=== PATIENT | male | born 2005 | race African-American/Black ===

== ENCOUNTER 2025-01-13 18:03 | Emergency (ER) | payer SELFPAY ==
--- NOTE | 2025-01-13 18:14 | ED.ABDPAIN ---
HPI - Abdominal Pain General Chief Complaint: Abdominal Pain Stated Complaint: VOMITING/LOWER R SIDE PAIN Patient presents to [facility] with complaints of waking up this morning not feeling well around 9:00 a.m. started nausea and vomiting then around noon started having right lower abdominal pain. Patient noted attempting Tums and attempting to eat pretzels as well as sipping on water and Gatorade still unable to keep anything down. Related Data Home Medications ?Medication ?Instructions ?Recorded ?Confirmed ?Last Taken ?Type No Home Medications 01/13/25 01/13/25 Unknown History Allergies Allergy/AdvReac Type Severity Reaction Status Date / Time No Known Allergies Allergy Verified 01/13/25 18:23 Review of Systems Constitutional: Constitutional: Reports as per HPI, Denies chills, Denies fatigue, Reports fever(s) ( Noted in [facility]) and Denies weakness ENT: Reports system reviewed and no additional complaints, except as documented Cardiovascular: Cardiovascular: Reports no additional cardiovascular complaints Respiratory: Respiratory: Reports no additional respiratory complaints Gastrointestinal: Gastrointestinal: Reports as per HPI, Reports abdominal pain, Denies bloating, Denies constipation, Denies heartburn, Denies diarrhea, Reports nausea and Reports vomiting Genitourinary: Genitourinary: Reports no additional male genitourinary complaints Musculoskeletal: Musculoskeletal: Reports no additional musculoskeletal complaints Integumentary/Breasts: Skin/Breast: Reports system reviewed and no additional complaints, except as docu Neurologic: Reports system reviewed and no additional complaints, except as documented Psychiatric: Psychiatric: Reports no additional psychiatric complaints Endocrine: Endocrine: Reports no additional endocrine complaints Hematologic/Lymphatic: Hematologic/Lymphatic: Reports no additional hematologic/lymphatic complaints Allergic/Immunologic: Allergic/Immunologic: Reports no additional allergic/immunologic complaints Exam Const: General: no acute distress, alert and ill appearing Nutritional Appearance: well nourished Orientation/consciousness: patient oriented x3 Limitations: no limitations Other: low-grade fever noted at [facility] Resp: Effort & Inspection: normal respiratory effort Auscultation: clear to auscultation bilaterally Cardio: Rate: regular rate Rhythm: regular rhythm GI: GI Palp: Yes Soft to palpation, Yes Tenderness to palpation present (GI) (RLQ), Yes Guarding due to palpation present (GI) (RLQ), No Rigid due to palpation, No Hernia present, No Palpable mass present and No Rebound tenderness present Auscultation: normal bowel sounds Back/Spine/Pelvis: Back: no CVA tenderness Skin: General skin exam: normal color Rashes: no rashes Wounds: no wounds Neuro: General: patient oriented x3 Speech: normal speech Gait exam (Neuro): Normal gait present Psych: Mental Status: mental status grossly normal Affect: normal affect Attitude: cooperative Course Course Level of Care: Express Care Visit Vital Signs Vital signs: Vital Signs Temperature 100.2 F H 01/13/25 18:21 Pulse Rate 86 01/13/25 18:21 Respiratory Rate 16 01/13/25 18:21 Blood Pressure 121/67 01/13/25 18:21 Pulse Oximetry 100 01/13/25 18:21 Temperature 100.2 F H 01/13/25 18:21 Pulse Rate 86 01/13/25 18:21 Respiratory Rate 16 01/13/25 18:21 Blood Pressure 121/67 01/13/25 18:21 Pulse Oximetry 100 01/13/25 18:21 MDM - Abdominal Pain MDM Narrative Medical decision making narrative: Given patient's complaint and symptoms patient should be evaluated in a emergency room to rule out appy. Patient notified of and concerns and agreeable to be transferred to the emergency room. Patient was driven here by friend will go by private vehicle report called to Martha ZULETA at [facility]. Differential Diagnosis Differential diagnosis: Likely abdominal pain, acute appendicitis, calculus of kidney, diverticulitis and endometriosis Medical Records Attestation: I reviewed the patient's medical records. Discharge Plan Discharge Clinical Impression: Abdominal pain Patient Disposition: Acute Care Hospital Condition: Unstable Patient Language: Hungarian Prescriptions: No Action No Home Medications Follow-up/Referrals: PHYSICIAN,NETWORK CONTRACT MANAGER [Primary Care Provider] - Time of Disposition: 18:29
[2025-01-13 18:21] VITALS: BP 121/67; PULSE 86; RESP 16; TEMP 37.9; O2SAT 100
== END 2025-01-13 18:30 | disposition short-term general hospital (02) ==
PROVIDERS: Emergency Provider Nurse Practitioner Family
DX: R10.31 Right lower quadrant pain (principal)
CPT/HCPCS: 99212; G0463

== ENCOUNTER 2025-01-13 18:49 | Observation (INO) | payer MEDICAID, SELFPAY ==
--- NOTE | ~2025-01-13 | CT_ITS ---
EXAMINATION: CT abdomen pelvis w con DATE: 01/13/2025 23:15 INDICATION: RLQ pain, likely appy TECHNIQUE: Computed tomography (CT) of the abdomen and pelvis was performed with 100 mL Omnipaque-350 intravenous contrast. Automated exposure control and iterative reconstruction technique were employe d. The dose-length product was 226.19 mGy-cm. COMPARISON: None. FINDINGS: Lower thorax: Unremarkable Liver: Normal. Biliary/Gallbladder: Gallbladder is normal. No bile duct dilation. Pancreas: No mass or duct dilation. Spleen: Normal. Adrenals:No mass. Kidneys: No suspicious mass, obstructing stone, or hydronephrosis. GI tract: Mild distal esophageal and gastric wall edema. No small or large bowel dilation. The append ix is dilated to 9 mm, with wall hyperemia and surrounding inflammatory change. No evidence of wall b reakdown or periappendiceal abscess Mesentery/Peritoneum: No ascites, mass, or free air. Retroperitoneum: No mass. Pelvis: Pelvic organs are within normal limits. Trace free pelvic fluid. Soft Tissues: Soft tissues and body wall unremarkable. Bones: No acute osseous finding. IMPRESSION: Mild esophagitis/gastritis. Acute uncomplicated appendicitis. Reviewed, dictated and finalized at location K.
--- OUTSIDE RECORDS SUMMARY | 2025-01-13 18:50 | XMS_ITS | Clinical Summary ---
Author Organization [facility] Address 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 Gender Identity Not on file Sexual Orientation Not on file Last Filed Vital Signs Vital Sign Reading Time Taken Comments Blood Pressure - - Pulse - - Temperature - - Respiratory Rate - - Oxygen Saturation - - Inhaled Oxygen Concentration - - Weight 32.7 kg (72 lb) 11/30/2014 10:34 AM CDT Height 146 cm (4' 9.48) 11/30/2014 10:34 AM CDT Body Mass Index 15.32 11/30/2014 10:34 AM CDT Plan of Treatment Health Maintenance Due Date Last Done Comments HEPATITIS C SCREENING 2004 TDAP/TD VACCINE (1 - Tdap) 2015 DEPRESSION SCREENING 2016 HIV SCREENING 2019 HPV VACCINE (1 - Male 3-dose series) 2019 COVID-19 VACCINE (2023-2 5 season) 2024 INFLUENZA VACCINE (#1) 2025 ZOSTER SERIES VACCINE (1 of 2) 2054 Adult RSV VACCINE (1 - 1-dos e 75+ series) 2079 Pneumococcal Vaccine: Childh ood and At-Risk Adult <65 yo Series Aged Out No longe r eligible based on patient's age to complete this topic Care Teams Audiology Assistant Relationship Specialty Start Date End Date [place] Julius Tucker [address] [place] [address] PCP - General Pediatrics 04/15/11 Carol Martinez [id number], [address] [place], [place] [id number] Referring Provider Pediatrics 03/31/15
--- OUTSIDE RECORDS SUMMARY | 2025-01-13 18:50 | XMS_ITS | Clinical Summary ---
Author Organization [facility] Address [address] [place] [address] Care Team Providers Care Budget Report Clerk Name Role Phone Unavailable Primary Care Provider Unavailabl e Source Comments [facility] is the largest [facility] health system based in [place]. We offer more than 150 locations around the [facility], in communities large and small, so health care access is convenient. With 19 [facility] hospitals, over 25 long-term care and chcf facilities, dozens of physician offices and health centers, home care, hospice, behavioral health services and more. Currently six of our Hospitals are live on the [employer] system, they are: [facility] Social History Tobacco Use Types Packs/Day Years Used Date Smoking Tobacco: Never Assessed Sex and Gender Information Value Date Recorded Sex Assigned at Not on file Gender Identity Not on file Sexual Orientation Not on file Plan of Treatment Not on file
--- OUTSIDE RECORDS SUMMARY | 2025-01-13 18:50 | XMS_ITS | Clinical Summary ---
Author Organization [employer] [facility] [place] [address] Phone Care Team Providers Care Behavioral Scientist Name Role Phone No, Pcp MD Primary Care Provider Unavailabl e Allergies No known active allergies Medications cephALEXin (KEFLEX) 250 mg/5 mL suspension 11/28/2014 Active hydrocortisone 2.5 % ointment 11/28/2014 Acti ve hydrOXYzine (ATARAX) 10 mg/5 mL syrup 11/28/2014 Active diphenhydrAMINE (BENADRYL ALLERGY) 12.5 mg/5 mL liquid Take 10 mL by mouth 4 (four) times daily as needed 1 Bottle 0 12/02/2014 Active Social History Tobacco Use Types Packs/Day Years Used Date Smoking Tobacco: Never Assessed Alcohol Use Standard Drinks/Week Comments No 0 (1 standard drink = 0.6 oz pur e alcohol) Sex and Gender Information Value Date Recorded Sex Assigned at Not on file Legal Sex Male 9:54 PM EST Gender Identity Not on file Sexual Orientation Not on file Last Filed Vital Signs Vital Sign Reading Time Taken Comments Blood Pressure 108/69 12/02/2014 5:28 PM CDT Pulse 100 12/02/2014 6:55 PM CDT Temperature 36.7 C (98.1 F) 12/02/2014 5:28 PM CDT Respiratory Rate 20 12/02/2014 6:55 PM CDT Oxygen Saturation 100% 12/02/2014 6:55 PM CDT Inhaled Oxygen Concentration - - Weight 32.2 kg (71 lb) 12/02/2014 5:28 PM CDT Height - - Body Mass Index - - Plan of Treatment Not on file Care Teams Behavioral Scientist Relationship Specialty Start Date End Date No, Pcp, MD PCP - General Unknown Physician Specialty 12/02/14
[2025-01-13 18:52] VITALS: BP 130/79; PULSE 86; RESP 16; TEMP 36.9; O2SAT 100
[2025-01-13 22:03] VITALS: BP 114/71; PULSE 89; RESP 14; TEMP 37; O2SAT 99
[2025-01-13 22:18] LABS: Hematocrit 40.8 % (42.0-52.0); Hemoglobin 14.4 g/dL (14.0-18.0); Immature Granulocyte Percent A 0.6 % (0-0.5); Lymphocytes Absolute Auto 1.47 K/mm3 (0.9-3.2); Mean Corpuscular HGB Conc 35.3 g/dl (32-36); Mean Corpuscular Hemoglobin 28.5 pg (26-34); Mean Corpuscular Volume 80.8 fl (80-100); Nucleated Red Blood Cells Absolute Auto 0.000 K/mm3 (0.0-0.012); Nucleated Red Blood Cells Perc 0.0 % (0.0-0.2); Platelet Count Result 263 k/mm3 (150-375); Red Blood Count 5.05 M/mm3 (4.6-6.20); White Blood Count 17.9 K/mm3 (4.5-10.0)
[2025-01-13 22:28] LABS: Alanine Aminotransferase 20 U/L (6-50); Albumin Level 4.8 g/dL (3.5-5.1); Alkaline Phosphatase 61 U/L (38-126); Anion Gap 9 mmol/L (4-12); Aspartate Amino Transferase 32 U/L (17-59); Bilirubin,Total 1.3 mg/dL (0.2-1.3); Blood Urea Nitrogen 10 mg/dL (9-20); Calcium 9.6 mg/dL (8.4-10.2); Carbon Dioxide 25 mmol/L (22-30); Chloride 101 mmol/L (98-107); Estimated CRCL calculation 101 ml/min; Estimated Glomerular Filt Rate > 60; Glucose 104 mg/dL (65-110); Lipase 23 U/L (23-300); Potassium 4.3 mmol/L (3.4-5.0); Sodium 135 mmol/L (137-145); Total Protein 8.2 g/dL (6.3-8.2)
--- OUTSIDE RECORDS SUMMARY | 2025-01-13 22:49 | XMS_ITS | Clinical Summary ---
Author Organization [employer] [facility] [place] [address] Phone Care Team Providers Care Vice President & General Manager [employer] Name Role Phone No, Pcp MD Primary [...] of Treatment Not on file Care Teams Vice President & General Manager [employer] Relationship Specialty Start Date End Date No, Pcp, MD PCP - General Unknown Physician Specialty 12/02/14
--- OUTSIDE RECORDS SUMMARY | 2025-01-13 22:50 | XMS_ITS | Clinical Summary ---
Author Organization [facility] Address 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
--- OUTSIDE RECORDS SUMMARY | 2025-01-13 22:50 | XMS_ITS | Clinical Summary ---
Author Organization [facility] [place] Address [address] [place] [address] Care Team Providers Care Chlorinator Operator Name Role Phone Unavailable Primary Care Provider Unavailabl e Source Comments [facility] is the largest [facility] health system based in [place]. We offer more than 150 locations around the [facility], in communities large and small, so health care access is convenient. With 19 [facility] and [facility] hospitals, over 25 long-term care and correction facilities, dozens of physician offices and health centers, home care, hospice, behavioral health services and more. Currently six of our Hospitals are live on the [employer] system, they are: [facility] Social History Tobacco Use Types Packs/Day Years Used Date Smoking Tobacco: Never Assessed Sex and Gender Information Value Date Recorded Sex Assigned at Not on file Gender Identity Not on file Sexual Orientation Not on file Plan of Treatment Not on file
--- NOTE | 2025-01-13 23:09 | ED_ITS ---
HPI - Abdominal Pain General Chief Complaint: Abdominal Pain Stated Complaint: RLQ pain x 1 day Time Seen by Provider: 01/13/25 22:26 History of Present Illness HPI narrative: 19-year-old otherwise healthy male presenting to the emergency department for evaluation of right lower quadrant pain associated with nausea and multiple episodes of vomiting earlier today. States his pain started suddenly throughout the day and gradually worsened. Went to urgent care and they were concerned about appendicitis and he was referred to the ER for evaluation. No history of abdominal surgical history, no previous infections or hospital visits. No chronic medication use. Was otherwise in his normal state of health. Endorses some nauseousness leftover but has not eaten since yesterday night. Related Data Home Medications ?Medication ?Instructions ?Recorded ?Confirmed ?Last Taken ?Type No Home Medications 01/13/25 01/13/25 Unknown History Allergies Allergy/AdvReac Type Severity Reaction Status Date / Time No Known Allergies Allergy Verified 01/13/25 18:23 Review of Systems 2 Review of Systems: As reviewed above in HPI Exam 2 Narrative: GENERAL: [Well-appearing, well-nourished, and in no acute distress.] HEAD: [Normocephalic, atraumatic.] EYES: [PERRLA and EOMI.] ENT: Nares clear, no rhinorrhea or epistaxis. Mucous membranes moist. NECK: Supple. CHEST: [Clear to auscultation. No respiratory distress.] HEART: [Regular rate and rhythm]. No murmur heard. [Normal peripheral pulses.] ABDOMEN: Soft and nondistended, tender to palpation the right lower quadrant, positive psoas sign, no rigidity or guarding EXTREMITIES: Normal range of motion. [No edema.] SKIN: Warm, dry, no rash. NEURO: [No focal deficits]. Alert and oriented [x3.] PSYCH: [Normal mood and affect.] Course Vital Signs Vital signs: Vital Signs Temperature 36.9 C 01/13/25 18:52 Pulse Rate 86 01/13/25 18:52 Respiratory Rate 16 01/13/25 18:52 Blood Pressure 130/79 01/13/25 18:52 Pulse Oximetry 100 01/13/25 18:52 Oxygen Delivery Room Air 01/13/25 18:52 Temperature 37.0 C 01/13/25 22:03 Pulse Rate 89 01/13/25 22:03 Respiratory Rate 14 01/13/25 22:03 Blood Pressure 114/71 01/13/25 22:03 Pulse Oximetry 99 01/13/25 22:03 Oxygen Delivery Room Air 01/13/25 18:52 MDM - Abdominal Pain MDM Narrative Medical decision making narrative: 19-year-old otherwise healthy male presenting to the emergency department for evaluation of right lower quadrant pain associated with nausea and multiple episodes of vomiting earlier today. States his pain started suddenly throughout the day and gradually worsened. Went to urgent care and they were concerned about appendicitis and he was referred to the ER for evaluation. No history of abdominal surgical history, no previous infections or hospital visits. No chronic medication use. Was otherwise in his normal state of health. Endorses some nauseousness leftover but has not eaten since yesterday night. Pain is reproducible in the right lower quadrant with palpation as well as a positive psoas sign. He is afebrile with no tachycardia with normal vital signs which is reassuring. Considerations are for appendicitis, appendicular with, gastritis, colitis, intra-abdominal infection, urinary tract infection, kidney stone. Laboratory studies were obtained and he was offered analgesia medications but he politely declined at this time. Laboratory studies showed leukocytosis of 17.9k raising suspicion for active infection. CT scan with IV contrast obtained for further delineation. CT scan independently reviewed and interpreted by radiology with acute appendicitis that appears uncomplicated. Consistent with patient's exam and laboratory findings. Discussed the case with general surgeon Dr. Hooper who will be admitting the patient. Patient was started on antibiotics including Rocephin and Flagyl, fluid resuscitation given, p.r.n. pain medications ordered NPO at midnight. Admission orders placed and I discussed this with the patient and the family members at bedside were comfortable with the plan. Medical Records Attestation: I reviewed the patient's medical records. Lab Data Attestation: I reviewed the patient's lab results. 01/13/25 22:08 01/13/25 22:08 Labs: Lab Results 01/13/25 01/13/25 Range/Units 22:08 23:35 WBC 17.9 H (4.5-10.0) K/mm3 RBC 5.05 (4.6-6.20) M/mm3 Hgb 14.4 (14.0-18.0) g/dL Hct 40.8 L (42.0-52.0) % MCV 80.8 (80-100) fl MCH 28.5 (26-34) pg MCHC 35.3 (32-36) g/dl RDW 13.4 (11.5-14.5) % Plt Count 263 (150-375) k/mm3 MPV 10.8 H (7.4-10.4) fl Immature Gran % (Auto) 0.6 H (0-0.5) % Neut % (Auto) 83.6 H (45.5-73.1) % Lymph % (Auto) 8.2 L (18.3-44.2) % [place] % (Auto) 7.5 (2.6-8.5) % Eos % (Auto) 0.0 (0-4.4) % Baso % (Auto) 0.1 L (0.2-1.2) % Lymph # (Auto) 1.47 (0.9-3.2) K/mm3 Davison # (Auto) 1.3 H (0.1-0.6) K/mm3 Eos # (Auto) 0.0 (0-0.3) K/mm3 Baso # (Auto) 0.0 (0.0-0.1) K/mm3 Abs Immat Gran (auto) 0.10 H (0.00-0.031) K/mm3 Absolute Neuts (auto) 15.0 H (1.3-6.7) K/mm3 Absolute Nucleated RBC 0.000 (0.0-0.012) K/mm3 Nucleated RBC % 0.0 (0.0-0.2) % Sodium 135 L (137-145) mmol/L Potassium 4.3 (3.4-5.0) mmol/L Chloride 101 (98-107) mmol/L Carbon Dioxide 25 (22-30) mmol/L Anion Gap 9 (4-12) mmol/L BUN 10 (9-20) mg/dL Creatinine 0.92 (0.7-1.3) mg/dL Estim Creat Clear Calc 101 ml/min Estimated GFR > 60 (59 - ) Glucose 104 (65-110) mg/dL Calcium 9.6 (8.4-10.2) mg/dL Total Bilirubin 1.3 (0.2-1.3) mg/dL AST 32 (17-59) U/L ALT 20 (6-50) U/L Alkaline Phosphatase 61 (38-126) U/L Total Protein 8.2 (6.3-8.2) g/dL Albumin 4.8 (3.5-5.1) g/dL Lipase 23 (23-300) U/L Urine Color Yellow (Yellow) Urine Appearance Clear (Clear) Urine pH 7.5 (5.0-9.0) Ur Specific [place] 1.043 H (1.001-1.035) Urine Protein Trace (Negative) mg/dL Urine Glucose (UA) Negative (Negative) mg/dL Urine Ketones 3+ H (Negative) mg/dL Ur Blood (Man) Negative (Negative) Urine Nitrate Negative (Negative) Urine Bilirubin Negative (Negative) Urine Urobilinogen 1.0 (<2.0) mg/dL Leukocyte Esterase Rfl Trace H (Negative) RACHELL/UL Urine RBC 0-2 (0-2) /hpf Urine WBC 6-10 H (0-3) /hpf Ur Squamous Epith Cells None seen (Few) /hpf Urine Bacteria None seen /hpf Urine Casts 0-2 Imaging Data Attestation: I personally reviewed and interpreted this imaging study as follows: My impression: Impressions Abdomen/Pelvis CT 01/13/25 23:16 IMPRESSION: Mild esophagitis/gastritis. Acute uncomplicated appendicitis. Radiologist's impression: ITS Impressions Abdomen/Pelvis CT 01/13/25 23:16 IMPRESSION: Mild esophagitis/gastritis. Acute uncomplicated appendicitis. Discharge Plan Discharge Clinical Impression: Acute appendicitis Patient Disposition: Still a Patient Condition: Stable Instructions: Antibiotic Form Patient Language: Frisian Prescriptions: No Action No Home Medications Follow-up/Referrals: PHYSICIAN NOT ON STAFF,NONSTAFF [Primary Care Provider] - Time of Disposition: 00:10
[2025-01-13 23:47] LABS: Add Urine Microscopic? YES; Appearance Urine Clear (Clear); Glucose Urine UA Negative (Negative); Leukocyte Esterase Ur Trace LEU/UL (Negative); Nitrate Urine Negative (Negative); Non Pathogenic Casts 0-2; Specific Grav Ur 1.043 (1.001-1.035)
[2025-01-14] VITALS (14 sets, daily range): BP systolic 117–130; BP diastolic 53–75; PULSE 63–94; RESP 13–18; TEMP 36.4–37.2; O2SAT 98–100
[2025-01-14] MEDS: cefTRIAXone 1 GM in SODIUM CHLORIDE 0.9% IV 50 ML 100 ML IVPB (00:36)
[2025-01-14] MEDS: SODIUM CHLORIDE 0.9% IV 1,000 ML 100 ML IV CONT (00:36)
--- NOTE | 2025-01-14 01:09 | ADMGEN ---
This patient, Anival Mcdonald, was admitted to [facility] Surg Room 327-01. Patient/family oriented to hospital policies and general routines including ID bracelet, bed and alarms, visiting hours, pain management, procedures, bathroom and other care routines, personal items, smoking policy, room service/diet, and visiting hours. Information on how to activate the Rapid Response Team has been discussed. Patient/Family are encouraged to report perceived risks to care and to ask questions if they do not understand what they are told or what they should do.
[2025-01-14] MEDS: metroNIDAZOLE 500 MG/ISO 100ML 500 MG/100 ML BAG 100 MG IVPB (01:22)
--- NOTE | 2025-01-14 06:39 | PM.SD2 ---
Same Day Admit/Disch: [facility] History of Present Illness Chief complaint: Acute appendicitis Narrative: Anival Mcdonald is a 19 year old malewith c/o RLQ abd pain, N/V that started yesterday. After being seen in urgent care, he came to ER where he was noted to have RLQ tenderness with guarding and positive psoas sign. His WBC was 17.9K and CT scan showed acute appendicitis. He is in the hospital now for further management of appendicitis, likely appendectomy. [facility] Social History Social History Smoking status: Never smoker Alcohol intake: current Drinks per week: 3 Substance use: current Substance use type: marijuana Last use: 01/11/2025 Do You Feel Safe in your Home?: Yes Lack of Transportation: No Lack of Food: Sometimes True Current Housing: I Have Housing Concerned About Future Housing: No Difficulty Paying Gas/Electric Bills: No Difficulty Paying for Meds: No Currently Unemployed: No Education: High School Diploma/GED Difficulty w/ Childcare or Family Care: No Spiritual care concerns: No Same Day Admit/Disch: Med Pre-admit Medications Home Medications ?Medication ?Instructions ?Recorded ?Confirmed ?Type No Home Medications 01/13/25 01/14/25 History oxycodone-acetaminophen 5 mg-325 0.5 - 1 tablet PO Q4H PRN pain #8 01/14/25 Rx mg tablet (Percocet) tabs Review of Systems Review of Systems All systems reviewed & are unremarkable except as noted in HPI and below (HPI) Exam Const: General: comfortable, no acute distress, alert, awake, well nourished and thin Nutritional Appearance: well nourished Orientation/consciousness: No confusion Limitations: no limitations HENMT: Head: normocephalic and atraumatic Mouth: Yes Normal oral and palatal mucosa present Eyes: Conjunctivae: conjunctivae normal Pupils: Equal, round and reactive pupils present EOM: EOMs intact bilaterally Neck: Neck: normal visual inspection, no lymphadenopathy and nontender Resp: Effort & Inspection: normal respiratory effort Auscultation: clear to auscultation bilaterally Cardio: Rate: regular rate Rhythm: regular rhythm Heart sounds: no gallops, no murmurs and no rubs GI: Inspection: normal to inspection, non-distended, scaphoid, no scars and no visible herniation GI Palp: Yes Soft to palpation, Yes Tenderness to palpation present (GI) (with guarding RLQ), Yes Guarding due to palpation present (GI), No Hepatomegaly present, No Splenomegaly present, No Hernia present and No Palpable mass present Skin: Lesions: no lesions Rashes: no rashes Neuro: General: no focal motor deficits and CN's II-XI intact bilaterally Cranial nerves: Yes Equal, round and reactive pupils present, Yes Bilaterally intact EOM present, Yes facial symmetry and Yes Midline tongue present Speech: normal speech Motor exam (neuro): 5/5 motor strength present throughout and Motor abnormalities not present Extrem: General: no clubbing, cyanosis or edema and edema Psych: Affect: normal affect Thought process: Normal thought process present Insight: Good insight present (Psych) DS: Data Data Completed and Pending Labs on day of discharge: Labs from last 24 hours 01/13/25 01/13/25 23:35 22:08 WBC 17.9 H RBC 5.05 Hgb 14.4 Hct 40.8 L MCV 80.8 MCH 28.5 MCHC 35.3 RDW 13.4 Plt Count 263 MPV 10.8 H Immature Gran % (Auto) 0.6 H Neut % (Auto) 83.6 H Lymph % (Auto) 8.2 L [place] % (Auto) 7.5 Eos % (Auto) 0.0 Baso % (Auto) 0.1 L Lymph # (Auto) 1.47 [place] # (Auto) 1.3 H Eos # (Auto) 0.0 Baso # (Auto) 0.0 Abs Immat Gran (auto) 0.10 H Absolute Neuts (auto) 15.0 H Absolute Nucleated RBC 0.000 Nucleated RBC % 0.0 Sodium 135 L Potassium 4.3 Chloride 101 Carbon Dioxide 25 Anion Gap 9 BUN 10 Creatinine 0.92 Estim Creat Clear Calc 101 Estimated GFR > 60 Glucose 104 Calcium 9.6 Total Bilirubin 1.3 AST 32 ALT 20 Alkaline Phosphatase 61 Total Protein 8.2 Albumin 4.8 Lipase 23 Urine Color Yellow Urine Appearance Clear Urine pH 7.5 Ur Specific [place] 1.043 H Urine Protein Trace Urine Glucose (UA) Negative Urine Ketones 3+ H Ur Blood (Man) Negative Urine Nitrate Negative Urine Bilirubin Negative Urine Urobilinogen 1.0 Leukocyte Esterase Rfl Trace H Urine RBC 0-2 Urine WBC 6-10 H Ur Squamous Epith Cells None seen Urine Bacteria None seen Urine Casts 0-2 Imaging Attestation: I personally reviewed and interpreted this imaging study as follows: (CT scan abd/pelvis) My impression: I was not able to see the appendix on my independent review Radiologist's impression: FINDINGS: Lower thorax: Unremarkable Liver: Normal. Biliary/Gallbladder: Gallbladder is normal. No bile duct dilation. Pancreas: No mass or duct dilation. Spleen: Normal. Adrenals:No mass. Kidneys: No suspicious mass, obstructing stone, or hydronephrosis. GI tract: Mild distal esophageal and gastric wall edema. No small or large bowel dilation. The appendix is dilated to 9 mm, with wall hyperemia and surrounding inflammatory change. No evidence of wall breakdown or periappendiceal abscess Mesentery/Peritoneum: No ascites, mass, or free air. Retroperitoneum: No mass. Pelvis: Pelvic organs are within normal limits. Trace free pelvic fluid. Soft Tissues: Soft tissues and body wall unremarkable. Bones: No acute osseous finding. IMPRESSION: Mild esophagitis/gastritis. Acute uncomplicated appendicitis. DS: Summary Time Spent with Patient Time attestation: Total time spent providing and/or coordinating discharge services: DS: Admitting Diagnosis Discharge Date 01/14/25 Admitting Diagnosis acute appendicitis--after discussion of surgical and medical treatment for acute appendicitis, patient prefers to undergo appendectomy. I discussed laparoscopic appendectomy in detail, including length of surgery and length of postop recovery. Postop potential complications discussed. All questions answered, he wishes to go ahead. DS: Discharge Diagnosis Discharge Diagnosis (1) Acute appendicitis: Qualifiers: Acute appendicitis type: with localized peritonitis Appendicitis abscess presence: unspecified whether abscess present Appendicitis gangrene presence: unspecified whether gangrene present Appendicitis perforation presence: unspecified whether perforation present Qualified Code(s): K35.30 - Acute appendicitis with localized peritonitis, without perforation or gangrene Code(s): K35.80 - Unspecified acute appendicitis Status: Acute Assessment and Plan: Laparoscopic appendectomy performed by Dr. Hooper 01/14/2025 Discharge Plan Discharge Attending physician on discharge: Mark Hooper Discharging Clinician: Mark Hooper Anticipated Discharge Date/Time: 01/14/25 20:00 Patient Disposition: Home Activity: may shower, no straining and as tolerated Diet: as tolerated Wound Care Instructions: incision open to air Discharge Instructions: Ambulate 3-4 x per day and as tolerated. No lifting over 15-20lbs. May bathe or shower. Stairs are OK. May drive a car in 2 days. No sports activities or heavy exertion for 7-10 days resume usual regular diet call Dr. Hooper's office or go to the emergency room if you experience severe abdominal pain, nausea and vomiting, temperature over 100.5?, shortness of breath, or other significant change in condition. Patient Instructions: Antibiotic Form Patient Language: Citizen Of [place] Stand Alone Forms: General Discharge Information, Work/School Release IP Follow-up/Referrals: Mark Hooper MD [Physician] - 01/24/25 (Call Dr. Rich office to make follow-up appointment on 01/24/2025) Discharge Medications: New oxycodone-acetaminophen [Percocet] 5-325 mg tablet 0.5 - 1 tablet PO Q4H PRN (Reason: pain) Qty: 8 0RF Continued No Home Medications Date of admission: 01/14/25 07:46 Primary Care Provider: PHYSICIAN NOT ON STAFF,NONSTAFF Admitting Provider: Mark Hooper Attending physician on admission: Mark Hooper Condition: Improved
[2025-01-14 07:33] LABS: Hematocrit 38.7 % (42.0-52.0); Hemoglobin 13.9 g/dL (14.0-18.0); Immature Granulocyte Percent A 0.4 % (0-0.5); Lymphocytes Absolute Auto 2.18 K/mm3 (0.9-3.2); Mean Corpuscular HGB Conc 35.9 g/dl (32-36); Mean Corpuscular Hemoglobin 28.8 pg (26-34); Mean Corpuscular Volume 80.3 fl (80-100); Nucleated Red Blood Cells Absolute Auto 0.000 K/mm3 (0.0-0.012); Nucleated Red Blood Cells Perc 0.0 % (0.0-0.2); Platelet Count Result 241 k/mm3 (150-375); Red Blood Count 4.82 M/mm3 (4.6-6.20); White Blood Count 13.4 K/mm3 (4.5-10.0)
--- OUTSIDE RECORDS SUMMARY | 2025-01-14 08:31 | XMS_ITS | Clinical Summary ---
Author Organization [facility] Address 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
--- OUTSIDE RECORDS SUMMARY | 2025-01-14 08:31 | XMS_ITS | Clinical Summary ---
Author Organization [facility] [place] [address] Phone Care Team Providers Care Pipe Racker Name Role Phone No, Pcp MD Primary [...] of Treatment Not on file Care Teams Pipe Racker Relationship Specialty Start Date End Date No, Pcp, MD PCP - General Unknown Physician Specialty 12/02/14
--- OUTSIDE RECORDS SUMMARY | 2025-01-14 08:31 | XMS_ITS | Clinical Summary ---
Author Organization [facility] Address [address] [place] [address] Care Team Providers Care Senior Security Engineer Name Role Phone Unavailable Primary Care Provider Unavailabl e Source Comments [facility] is the largest [facility] health system based in [place]. We offer more than 150 locations around the [facility], in communities large and small, so health care access is convenient. With 19 [facility] and [facility] hospitals, over 25 long-term care and detention facilities, dozens of physician offices and health centers, home care, hospice, behavioral health services and more. Currently six of our Hospitals are live on the [employer] system, they are: [facility] Social History Tobacco Use Types Packs/Day Years Used Date Smoking Tobacco: Never Assessed Sex and Gender Information Value Date Recorded Sex Assigned at Not on file Gender Identity Not on file Sexual Orientation Not on file Plan of Treatment Not on file
--- NOTE | 2025-01-14 14:46 | P.PNAN_ITS ---
Anes - Initial Pre Proc Eval Procedure: Operation Date: 01/14/25 15:30 Proposed Procedures p Laparoscopic Appendectomy - Mark Hooper MD Date/Time: 01/14/25 14:46 Surgeon: Mark Hooper MD Pre Op Diagnosis: Acute appendicitis Patient Data Age: 19 Gender: M Height: 1.8 m Weight: 65.2 kg Last Vital Signs Temp 36.9 C 01/14/25 04:35 Pulse 77 01/14/25 04:35 Resp 18 01/14/25 04:35 BP 117/55 L 01/14/25 04:35 Pulse Ox 99 01/14/25 11:26 O2 Del Method Room Air 01/14/25 11:26 Allergies Allergy/AdvReac Type Severity Reaction Status Date / Time No Known Allergies Allergy Verified 01/14/25 01:06 Home Medications ?Medication ?Instructions ?Recorded ?Confirmed ?Type No Home Medications 01/13/25 01/14/25 History Laboratory Tests 01/13/25 01/13/25 01/14/25 22:08 23:35 07:28 WBC 17.9 H K/mm3 13.4 H K/mm3 (4.5-10.0) (4.5-10.0) RBC 5.05 M/mm3 4.82 M/mm3 (4.6-6.20) (4.6-6.20) Hgb 14.4 g/dL 13.9 L g/dL (14.0-18.0) (14.0-18.0) Hct 40.8 L % 38.7 L % (42.0-52.0) (42.0-52.0) MCV 80.8 fl 80.3 fl (80-100) (80-100) MCH 28.5 pg 28.8 pg (26-34) (26-34) MCHC 35.3 g/dl 35.9 g/dl (32-36) (32-36) RDW 13.4 % 13.4 % (11.5-14.5) (11.5-14.5) Plt Count 263 k/mm3 241 k/mm3 (150-375) (150-375) MPV 10.8 H fl 10.8 H fl (7.4-10.4) (7.4-10.4) Immature Gran % (Auto) 0.6 H % 0.4 % (0-0.5) (0-0.5) Neut % (Auto) 83.6 H % 73.5 H % (45.5-73.1) (45.5-73.1) Lymph % (Auto) 8.2 L % 16.3 L % (18.3-44.2) (18.3-44.2) [place] % (Auto) 7.5 % 9.5 H % (2.6-8.5) (2.6-8.5) Eos % (Auto) 0.0 % 0.1 % (0-4.4) (0-4.4) Baso % (Auto) 0.1 L % 0.2 % (0.2-1.2) (0.2-1.2) Lymph # (Auto) 1.47 K/mm3 2.18 K/mm3 (0.9-3.2) (0.9-3.2) [place] # (Auto) 1.3 H K/mm3 1.3 H K/mm3 (0.1-0.6) (0.1-0.6) Eos # (Auto) 0.0 K/mm3 0.0 K/mm3 (0-0.3) (0-0.3) Baso # (Auto) 0.0 K/mm3 0.0 K/mm3 (0.0-0.1) (0.0-0.1) Abs Immat Gran (auto) 0.10 H K/mm3 0.05 H K/mm3 (0.00-0.031) (0.00-0.031) Absolute Neuts (auto) 15.0 H K/mm3 9.8 H K/mm3 (1.3-6.7) (1.3-6.7) Absolute Nucleated RBC 0.000 K/mm3 0.000 K/mm3 (0.0-0.012) (0.0-0.012) Nucleated RBC % 0.0 % 0.0 % (0.0-0.2) (0.0-0.2) Sodium 135 L mmol/L (137-145) Potassium 4.3 mmol/L (3.4-5.0) Chloride 101 mmol/L (98-107) Carbon Dioxide 25 mmol/L (22-30) Anion Gap 9 mmol/L (4-12) BUN 10 mg/dL (9-20) Creatinine 0.92 mg/dL (0.7-1.3) Estim Creat Clear Calc 101 ml/min Estimated GFR > 60 (59 - ) Glucose 104 mg/dL (65-110) Calcium 9.6 mg/dL (8.4-10.2) Total Bilirubin 1.3 mg/dL (0.2-1.3) AST 32 U/L (17-59) ALT 20 U/L (6-50) Alkaline Phosphatase 61 U/L (38-126) Total Protein 8.2 g/dL (6.3-8.2) Albumin 4.8 g/dL (3.5-5.1) Lipase 23 U/L (23-300) Urine Color Yellow (Yellow) Urine Appearance Clear (Clear) Urine pH 7.5 (5.0-9.0) Ur Specific [place] 1.043 H (1.001-1.035) Urine Protein Trace mg/dL (Negative) Urine Glucose (UA) Negative mg/dL (Negative) Urine Ketones 3+ H mg/dL (Negative) Ur Blood (Man) Negative (Negative) Urine Nitrate Negative (Negative) Urine Bilirubin Negative (Negative) Urine Urobilinogen 1.0 mg/dL (<2.0) Leukocyte Esterase Rfl Trace H RACHELL/UL (Negative) Urine RBC 0-2 /hpf (0-2) Urine WBC 6-10 H /hpf (0-3) Ur Squamous Epith Cells None seen /hpf (Few) Urine Bacteria None seen /hpf Urine Casts 0-2 Blood Type O Positive Antibody Screen Negative Patient hx anesthesia problems: none Family hx anesthesia problems: none Results Review: All pre-operative results and documents have been reviewed as part of the pre- operative evaluation. REPLACED BY [facility] Social History Social History Smoking status: Never smoker Alcohol intake: current Drinks per week: 3 Substance use: current Substance use type: marijuana Last use: 01/11/2025 Do You Feel Safe in your Home?: Yes Lack of Transportation: No Lack of Food: Sometimes True Current Housing: I Have Housing Concerned About Future Housing: No Difficulty Paying Gas/Electric Bills: No Difficulty Paying for Meds: No Currently Unemployed: No Education: High School Diploma/GED Difficulty w/ Childcare or Family Care: No Spiritual care concerns: No Anes - Eval Final PreProcedure Day of Procedure 01/14/25 14:46 Patient weight: normal Heart: regular rate and rhythm Lungs: clear to auscultation Airway: Mallampati scale class II Neurological: alert and oriented Last oral intake: >/= 8 hours ASA classification: II Emergent: yes Anesthetic plan: proceed Anesthesia type and monitoring: general ETT and standard monitoring Results Review: All pre-operative results and documents have been reviewed as part of the pre- operative evaluation. Informed Consent: The patient's anesthetic plan and its attendant risks and benefits were discussed with the patient/family/POA. Questions were solicited and answers provided to the satisfaction of the patient/family/POA.
--- NOTE | 2025-01-14 15:33 | WPDHPUPDATE1 ---
History and Physical Update Update Date/Time: 01/14/25 15:33 History and Physical has been reviewed, including an updated exam of the patient. There are NO changes in the patient's condition. Risks, benefits, and alternatives have been discussed and questions answered. Patient agrees to proceed with procedure.
[2025-01-14] MEDS: ceFAZolin 2 GM in SODIUM CHLORIDE 0.9% IV 50 ML 100 ML IVPB (15:57)
--- NOTE | 2025-01-14 16:10 | S_PTH ---
PATIENT: Anival Mcdonald LOC: [id number] U#:[id number] AGE/SX: 19/M ROOM: 327 RE01/14/[address]: Mark Hopoer MD : 2005 BED: 01 DIS: 01/15/2025 SPEC #: [id number] RECD: 01/17/25 08:00 STATUS: YASHIRA REQ #: [id number] [place]: 01/14/25 16:[address]: Mark Hooper DEPT: [facility] [place] Surgical RECD BY: Corrine Gilbert ENTERED: 01/17/25 08:01 SP TYPE: Surgical OTHR DR: PHYSICIAN NOT ON STAFF Tissues: A - Appendix Procedures: Hematoxylin and Eosin Stain Gross and Microscopic Level 3
[2025-01-14] MEDS: LACTATED RINGERS 1,000 ML 30 ML IV CONT (16:33)
--- NOTE | 2025-01-14 16:55 | P.OP_ITS ---
Procedure Note - Detailed Date of Procedure 01/14/25 Pre-op Diagnosis Acute appendicitis Post-op Diagnosis Same Procedure Performed Laparoscopic appendectomy Surgeon Mark Hooper MD Canal Equipment Maintenance Supervisor Darryl CARRENO Anesthesia General and Local Indications Patient started having abdominal pain the moved to his right lower quadrant yesterday. He also had nausea and vomiting. He was found to have tenderness with guarding in the right lower quadrant and leukocytosis. CT scan shows acute appendicitis. After discussion, he is taken to surgery now for laparoscopic appendectomy Findings Acute, non perforated, appendicitis Description of Procedure Patient was taken to surgery and induced into general anesthesia. The abdomen is prepped and draped. Trocars were placed in the usual manner. Patient was placed in Trendelenburg with the right-side elevated. The appendix was able to be found easily. There was some omental adhesions to the distal 3rd of the appendix. Fortunately the these were not dense adhesions and were easily taken down and the omentum removed from the appendix. There was no sign of gangrenous change or rupture of the appendix. Appendix was elevated anteriorly and then dissection was carried out in the mesoappendix. The appendiceal artery was found and was thoroughly cauterized and divided. We skeletonized the base of the appendix. The appendix was then ligated at its base with a Vicryl endoloop. The appendix was amputated just above the ligature. The mucosa of the appendiceal stump was cauterized. The appendix was placed immediately in an End o-Catch bag and retrieved through the 10 11 left lower quadrant trocar site. We replaced the 10 11 trocar and reviewed the areas of dissection. Some suctioning and irrigation were carried out. There was no sign of bleeding or other problems. We then used a Grabiel cone and closed the fascia at the 10 11 left lower quadrant trocar site with an 0 Vicryl suture. We evacuated CO2 and removed the trocar sleeves. Skin wounds were closed with subcuticular 4-0 Monocryl skin suture. The wounds were dressed with Exofin surgical adhesive. Patient was awakened and taken to recovery in good condition. Sponge needle counts were correct x2. Estimated Blood Loss -10 Drains No Packing No Pathology Yes (Appendix) Complications None Condition Stable Disposition PACU [facility] Billing Surgery - Charge Forward: Surgery Billing (Laparoscopic appendectomy)
[2025-01-14] MEDS: LACTATED RINGERS 1,000 ML 80 ML IV CONT (22:46)
[2025-01-15] MEDS: oxyCODONE HCL (*CRX) 2.5 MG TAB IR PO ×2 (03:28→13:46)
[2025-01-15 04:40] VITALS: BP 122/64; PULSE 58; RESP 20; TEMP 36.4; O2SAT 98
[2025-01-15 07:33] VITALS: BP 124/66; PULSE 65; RESP 18; TEMP 37.1; O2SAT 100
[2025-01-15 11:33] VITALS: BP 121/70; PULSE 62; RESP 18; TEMP 37.4; O2SAT 100
--- NOTE | 2025-01-15 14:25 | PM.PNGS ---
Progress Note: A&P Assessment and Plan (1) Acute appendicitis: Qualifiers: Acute appendicitis type: with localized peritonitis Appendicitis abscess presence: unspecified whether abscess present Appendicitis gangrene presence: unspecified whether gangrene present Appendicitis perforation presence: unspecified whether perforation present Qualified Code(s): K35.30 - Acute appendicitis with localized peritonitis, without perforation or gangrene Code(s): K35.80 - Unspecified acute appendicitis Status: Acute Assessment and Plan: Patient feeling better now, not quite 24 hours since the surgery. He has been up but it is uncomfortable to ambulate. His appetite is returning. Plan to discharge this evening. Discharge instructions given. See me in 7-10 days. Subjective Subjective Date/Time Seen: 01/15/25 14:25 Post Op day: 1 Patient reports: feels better, still having pain (Oral oxycodone relieves), tolerating a regular diet and afebrile Interval history: Patient too sleepy and very uncomfortable so did not go home last night. Even today, he is still pretty uncomfortable although 2.5 mg oxy IR pain medicine was quite helpful. No new problems or issues, just still having pain and uncomfortable to move. Exam Const: General: healthy appearing, no acute distress, alert, awake and well nourished; No Physically active Nutritional Appearance: thin GI: Inspection: no abdominal wall ecchymosis, non-distended, incision (Healing well) and scaphoid GI Palp: Yes Firmness to palpation present (GI), Yes Tenderness to palpation present (GI), No Guarding due to palpation present (GI), No Hernia present, No Palpable mass present and No Rebound tenderness present Objective Data Vital Signs Vital Signs: Vital Signs - 24 hr 01/14/25 16:33 01/14/25 16:48 01/14/25 17:00 Temperature 37.2 C Pulse Rate 94 86 78 Respiratory Rate 16 16 15 Blood Pressure 122/53 L 121/59 L 130/72 Pulse Oximetry 100 100 100 Oxygen Delivery Simple Face Mask Simple Face Mask Simple Face Mask Oxygen Flow Rate 8 8 8 01/14/25 17:15 01/14/25 17:30 01/14/25 17:45 Temperature Pulse Rate 75 77 72 Respiratory Rate 13 14 16 Blood Pressure 129/72 130/72 125/75 Pulse Oximetry 100 100 100 Oxygen Delivery Room Air Room Air Room Air Oxygen Flow Rate 01/14/25 18:15 01/14/25 18:30 01/14/25 19:00 Temperature 36.6 C 36.6 C 36.9 C Pulse Rate 75 70 77 Respiratory Rate 18 18 18 Blood Pressure 126/73 119/74 127/72 Pulse Oximetry 100 100 100 Oxygen Delivery Oxygen Flow Rate 01/14/25 20:00 01/15/25 04:40 01/15/25 07:33 Temperature 36.9 C 36.4 C 37.1 C Pulse Rate 71 58 L 65 Respiratory Rate 16 20 18 Blood Pressure 122/70 122/64 124/66 Pulse Oximetry 100 98 100 Oxygen Delivery Oxygen Flow Rate Intake/Output Intake/Output: Intake & Output 01/12/25 01/13/25 01/14/25 01/15/25 23:59 23:59 23:59 23:59 Intake Total 1500 890 Balance 1500 890 Meds/Results Medications: Active Medications Generic Name Dose Route Start Last Admin Trade Name Freq PRN Reason Stop Dose Admin Acetaminophen 500 mg 01/14/25 17:48 Acetaminophen 500 Mg Tablet PO Q6H PRN Pain Rated 1-3 Fentanyl Citrate 12.5 mcg 01/14/25 17:48 Fentanyl Citrate Inj (*Crx) 100 Mcg/2 Ml Vial IV PUSH Q2H PRN Breakthrough Pain Rated 4-6 or NPO Fentanyl Citrate 25 mcg 01/14/25 17:48 Fentanyl Citrate Inj (*Crx) 100 Mcg/2 Ml Vial IV PUSH Q2H PRN Breakthrough Pain Rated 7-10 or NPO Ibuprofen 800 mg in 200 mls @ 400 mls/hr 01/14/25 17:48 Caldolor 800 Mg/200 Ml IVPB Q6H PRN Breakthrough Pain Rated 1-3 or NPO Naloxone HCl 0.1 mg 01/14/25 17:48 Naloxone Hcl 0.4 Mg/Ml Vial IV PUSH Q2M PRN Opiate Reversal Oxycodone HCl 2.5 mg 01/14/25 17:48 01/15/25 13:46 Oxycodone Hcl (*Crx) 2.5 Mg Tab Ir PO 2.5 mg Q4H PRN Administration Pain Rated 4-6 Oxycodone/Acetaminophen 1 tablet 01/14/25 17:48 Oxycodone/Acetaminophen (*Crx) 5-325 Mg Tablet PO Q4H PRN Pain Rated 7-10 Radiology Results: ITS Impressions Abdomen/Pelvis CT 01/13/25 23:16 IMPRESSION: Mild esophagitis/gastritis. Acute uncomplicated appendicitis.
--- NOTE | 2025-01-15 14:42 | WPDANESPN ---
Anes - Prog Note Post-Op Date/Time: 01/15/25 14:42 Cardiovascular status: normal Respiratory status: normal Airway patency: baseline Mental status: baseline Post-Op hydration status: normal Vital Signs: Last Vital Signs Temp 37.1 C 01/15/25 07:33 Pulse 65 01/15/25 07:33 Resp 18 01/15/25 07:33 BP 124/66 01/15/25 07:33 Pulse Ox 100 01/15/25 07:33 O2 Del Method Room Air 01/14/25 17:45 O2 Flow Rate 8 01/14/25 17:00 Pain Score (VAS): 07/09 I/O: Intake & Output 01/14/25 01/15/25 01/15/25 23:59 07:59 15:59 Intake Total 50 650 240 Balance 50 650 240 Laboratory Tests 01/14/25 07:28 01/13/25 22:08 Post-procedural complaints: none Patient Feedback: Patient satisfied with anesthetic care.
== END 2025-01-15 18:20 | disposition home or self-care (01) ==
LOC: ANHED 01-14 00:10 → ANH3MEDSUR 01-14 06:39
PROVIDERS: Admitting Provider Surgery; Emergency Provider Student in an Organized Health Care Education/Training Program; Visit Provider Surgery
PROC: 0DTJ4ZZ Resection of Appendix, Percutaneous Endoscopic Approach (ICD-10-PCS; CPT 44970; principal; 2025-01-14 15:30)
DX: K35.30 Acute appendicitis with localized peritonitis, without perforation or gangrene (principal)
CPT/HCPCS: 44970; 36415; 74177; 80053; 81001; 83690; 85025; 86850; 86900; 86901; 87086; 88304; 99285; J0690; A9270; G0378; J0696; J1836; J2250; J3010; J7030; J7120; Q9967